=== PATIENT | male | born 1990 | race Caucasian/White ===

== ENCOUNTER 2018-03-10 09:38 | Emergency (ER) | payer OTHER ==
[2018-03-10] MEDS: KETOROLAC 60 MG/2 ML VIAL (J1885) IM (10:13)
== END 2018-03-10 10:44 | disposition home or self-care (01) ==
LOC: M ED 09:38
DX: S39.012A Strain of muscle, fascia and tendon of lower back, initial encounter (principal); X50.9XXA Other and unspecified overexertion or strenuous movements or postures, initial encounter; Y92.89 Other specified places as the place of occurrence of the external cause; Z79.899 Other long term (current) drug therapy
CPT/HCPCS: J1885

== ENCOUNTER → 2018-10-11 | Outpatient (REF) | payer OTHER ==
[~2018-10-11] MED LIST: CYCL10TA PO; INDO50CA11 PO; NAPR-837 PO; ROBA500T PO
[2018-10-11 17:41] LABS: SEMEN APPEARANCE OPAQUE (OPAQUE); SEMEN VISCOSITY VISCOUS (LIQUID); SEMEN VOLUME 3.8 ml (2.0-5.0); SPERM CONCENTRATION 30.9 M/ml (>=15.0); WBC CONCENTRATION <=1 M/ml (<=1 M/ml)
== END ==
LOC: M LAB REF 16:26
PROVIDERS: ATTEND Obstetrics & Gynecology Reproductive Endocrinology
DX: N46.9 Male infertility, unspecified (principal)

== ENCOUNTER → 2019-02-02 | Outpatient (REF) | payer OTHER ==
[~2019-02-02] MED LIST changes: -INDO50CA11 PO; +INDO50CA91 PO
== END ==
LOC: M SFHCLERA 11:27
PROVIDERS: ATTEND Nurse Practitioner Family
DX: R53.81 Other malaise (principal)